=== PATIENT | female | born 2000 | race Caucasian/White ===

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

== ENCOUNTER 2023-04-05 14:20 | Emergency (ER) | payer BC ==
[~2023-04-05] VITALS: Ht 182.9 cm; Wt 86.4 kg
[~2023-04-05 14:20] MED LIST: OMNICEF 300MG300 MG PO
[2023-04-05 14:24] VITALS: TEMP 97.7
[2023-04-05 15:11] LABS: BASO # 0.1 K/mm3 (0.0-0.2); BASO % 1.1 % (0.0-2.0); EOS % 0.2 % (0.0-4.0); GRAN % 85.4 % (42.2-75.2); HEMATOCRIT 40.3 % (35.0-45.0); LYMPH # 1.2 K/mm3 (1.2-3.4); LYMPH % 9.9 % (20.0-51.0); MEAN CELL VOLUME 78 fl (80.0-95.0); MEAN CORPUSCULAR HEMOGLOBIN 25 pg (26-32); MEAN CORPUSCULAR HGB CONC 32 g/dl (33.0-37.0); MEAN PLATELET VOLUME 9.2 fl (7.4-10.4); MONO # 0.4 K/mm3 (0.1-0.6); MONO % 3.1 % (1.7-9.3); PLATELET COUNT 396 K/mm3 (130-400); RED BLOOD COUNT 5.14 M/mm3 (4.10-5.30); REDCELL DISTRIBUTION WIDTH-CV 15.3 % (11.5-14.5)
[2023-04-05 15:15] LABS: ALBUMIN 4.3 gm/dL (3.5-5.0); BILIRUBIN,TOTAL 0.5 mg/dL (0.2-1.2); CALCIUM 9.9 mg/dL (8.4-10.2); CREATININE, serum 0.82 mg/dL (0.57-1.11); POTASSIUM 3.8 mmol/L (3.5-4.5)
[2023-04-05] MEDS ORDERED: Methylergonovine 0.2 MG/ML 1 ML AMPUL IM ONE (16:45)
[2023-04-05] MEDS ORDERED: METHERGINE0.2 MG/TAB PO (17:00)
[2023-04-05 17:51] VITALS: BP 128/64; PULSE 71
== END 2023-04-05 17:52 | disposition home or self-care (01) ==
LOC: COL.ER 14:20
PROVIDERS: Family Medicine
DX: O03.4 Incomplete spontaneous abortion without complication (principal)
CPT/HCPCS: J2210